=== PATIENT | male | born 1980 | race American Indian/Alaskan Native ===

== ENCOUNTER 2017-06-24 17:34 | Emergency (ER) | payer SELFPAY ==
[2017-06-24] MEDS ORDERED: BOOSTRIX IM ONE (18:43)
--- NOTE | 2017-06-24 19:23 | Cat Scan Report ---
FINAL REPORT PROCEDURE: CT HEAD/BRAIN WO CON TECHNIQUE: Computerized tomography of the head was performed without contrast material. HISTORY: headache COMPARISON: No prior studies are available for comparison. FINDINGS: No CT evidence of intracranial mass, hemorrhage, acute territorial infarction, or hydrocephalus. The intracranial arteries are symmetric in density. There is left scalp laceration and soft tissue swelling. No acute fracture is seen. The paranasal sinuses and mastoids are aerated. IMPRESSION: No CT evidence of acute intracranial abnormality. Left scalp laceration is present
[2017-06-24] MEDS ORDERED: ULTRAM PO ONE (19:29)
[2017-06-24] MEDS ORDERED: XYLOCAINE 2% INFILTRATI ONE ×2 (19:34→19:58)
[2017-06-24] MEDS ORDERED: NACL 0.9% IR ONE (19:40)
[2017-06-24] MEDS ORDERED: NACL 0.9% 500 ML IR ONE (19:41)
--- NOTE | 2017-06-24 20:26 | Emergency Department Report ---
<JESÚS VARELA - Last Filed: 06/24/17 20:24> - General Chief Complaint: Wound/Laceration Stated Complaint: LACERATION TO HEAD Time Seen by Provider: 06/24/17 18:13 Source: patient Mode of arrival: Ambulatory Limitations: No Limitations - Related Data Home Medications Medication Instructions Recorded Confirmed Last Taken No Known Home Medications [No 06/24/17 06/24/17 Unknown Reported Home Medications] Allergies Allergy/AdvReac Type Severity Reaction Status Date / Time No Known Allergies Allergy Unverified 06/24/17 17:56 ED Review of Systems ROS: Stated complaint: LACERATION TO HEAD Other details as noted in HPI ED Past Medical Hx - Past Medical History Previous Medical History?: No - Surgical History Past Surgical History?: No - Social History Smoking Status: Current Every Day Smoker Substance Use Type: Alcohol - Medications Home Medications: Home Medications Medication Instructions Recorded Confirmed Last Taken Type No Known Home Medications [No 06/24/17 06/24/17 Unknown History Reported Home Medications] ED Physical Exam - General Limitations: No Limitations ED Course Vital Signs 06/24/17 06/24/17 06/24/17 17:56 19:05 19:43 Temperature 99.1 F 98.9 F Pulse Rate 114 H 75 Respiratory 18 16 16 Rate Blood Pressure 109/73 Blood Pressure 125/76 [Left] O2 Sat by Pulse 99 98 Oximetry - Laceration /Wound Repair Left Temporal Wound Location: head Wound's Depth, Shape: into muscle, linear Wound Explored: clean Betadine Prep?: Yes Anesthesia: 1% Lidocaine Suture Size/Type: 5:0 Number of Sutures: 13 Sterile Dressing Applied?: Yes Progress: Patient tolerated procedure well ED Medical Decision Making - Radiology Data Radiology results: report reviewed, image reviewed FINAL REPORT PROCEDURE: CT HEAD/BRAIN WO CON TECHNIQUE: Computerized tomography of the head was performed without contrast material. HISTORY: headache COMPARISON: No prior studies are available for comparison. FINDINGS: No CT evidence of intracranial mass, hemorrhage, acute territorial infarction, or hydrocephalus. The intracranial arteries are symmetric in density. There is left scalp laceration and soft tissue swelling. No acute fracture is seen. The paranasal sinuses and mastoids are aerated. IMPRESSION: No CT evidence of acute intracranial abnormality. Left scalp laceration is present Transcribed By: CHAITANYA Dictated By: GREGORIA JUDD M.D. Electronically Authenticated By: GREGORIA JUDD M.D. Signed Date/Time: 06/24/171918 DD/ 18 TD/TT: 06/24/171918 Critical care attestation.: If time is entered above; I have spent that time in minutes in the direct care of this critically ill patient, excluding procedure time. ED Disposition Disposition: DC- TO HOME OR SELFCARE Condition: Stable Referrals: PRIMARY CARE, [Primary Care Provider] - 3-5 Days <ASMITA GARCIA - Last Filed: 06/24/17 20:28> ED Disposition Is pt being admited?: No Does the pt Need Aspirin: No Time of Disposition: 20:28
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
[2017-06-24 21:53] LABS: Hepatitis A Antibody IgM Non-Reactive (NonReactive); Hepatitis B Core IgM Non-Reactive (NonReactive); Hepatitis B Surface Antigen Non-Reactive (Negative); Hepatitis C Virus Antibody Non-Reactive (NonReactive)
[2017-06-24 22:03] VITALS: BP 120/72
== END 2017-06-24 21:35 | disposition home or self-care (01) ==
LOC: ED 17:34
DX: S01.01XA Laceration without foreign body of scalp, initial encounter (principal); F17.200 Nicotine dependence, unspecified, uncomplicated; W26.8XXA Contact with other sharp object(s), not elsewhere classified, initial encounter; Y93.89 Activity, other specified; Y92.89 Other specified places as the place of occurrence of the external cause; Y99.8 Other external cause status
CPT/HCPCS: 36415; 70450; 80074; 87806